=== PATIENT | male | born 1970 | race Caucasian/White ===

== ENCOUNTER 2018-06-20 09:43 | Inpatient (IN) | payer OTHER ==
[2018-06-20 10:43] VITALS: BMI 24.0
--- NOTE | 2018-06-20 11:19 | HP ---
COWS - Scale Resting Pulse: 0= [place] 80 or Below Sweatin= Chills/Flushing Restless Observation: 3= Extraneous Movement Pupil Size: 1= Pupils >than Normal Bone or Joint Aches: 2= Severe Diffuse Aches Runny Nose/ Eye Tearin= Nasal Congestion GI Upset > 30mins: 2= Nausea/Diarrhea Tremor Observation: 2= Slight Tremor Visible Yawning Observation: 1= 1-2x During Session Anxiety or Irritability: 2=Irritable/Anxious Goose Flesh Skin: 0=Smooth Skin COWS Score: 15 Admission ROS BHS - HPI Chief Complaint: i nee dhelp to stop using heroin Allergies/Adverse Reactions: Allergies Allergy/AdvReac Type Severity Reaction Status Date / Time No Known Allergies Allergy Verified 06/20/18 10:58 History of Present Illness: this 47 years old male with heroin dependence,seeking detox,withdrawal symptom, last detox [place] completed multiple admissions in detox,keep relapsing hepatitis c longest sobriety 5 years weight loss Exam Limitations: No Limitations - Ebola screening Have you traveled outside of the country in the last 21 days: No Have you had contact with anyone from an Ebola affected area: No Have you been sick,other than usual withdrawal symptoms: No Do you have a fever: No - Review of Systems Constitutional: Chills, Malaise, Night Sweats, Changes in sleep, Weakness, Unintentional Wgt. Loss EENT: reports: Tearing, Nose Congestion Respiratory: reports: No Symptoms reported Cardiac: reports: No Symptoms Reported GI: reports: Diarrhea, Nausea, Vomiting, Abdominal cramping : reports: No Symptoms Reported Musculoskeletal: reports: Back Pain, Joint Pain, Muscle Pain, Joint Stiffness Integumentary: reports: Dryness Neuro: reports: Headache, Tremors Endocrine: reports: No Symptoms Reported Hematology: reports: No Symptoms Reported Psychiatric: reports: No Sypmtoms Reported, Judgement Intact, Mood/Affect Appropiate, Orientated x3 Patient History - Patient Medical History Hx Anemia: No Hx Asthma: No Hx Chronic Obstructive Pulmonary Disease (COPD): No Hx Cancer: No Hx Cardiac Disorders: No Hx Congestive Heart Failure: No Hx Hypertension: No Hx Hypercholesterolemia: No Hx Pacemaker: No HX Cerebrovascular Accident: No Hx Seizures: No Hx Diabetes: No Hx Gastrointestinal Disorders: No Hx Liver Disease: No Hx Genitourinary Disorders: No Hx Sexually Transmitted Disorders: Yes (gonorrhea and syphilis) Hx Renal Disease (ESRD): No Hx Thyroid Disease: No Hx Human Immunodeficiency Virus (HIV): No (2017 last negative) Hx Hepatitis C: Yes (not treated) Hx Depression: No Hx Suicide Attempt: No Hx Bipolar Disorder: No Hx Schizophrenia: No Other Medical History: no suicidal,no homicidal - Patient Surgical History Past Surgical History: No Hx Neurologic Surgery: No Hx Cardiac Surgery: No Hx Lung Surgery: No Hx Breast Surgery: No Hx Breast Biopsy: No Hx Abdominal Surgery: No Hx Appendectomy: No Hx Cholecystectomy: No Hx Genitourinary Surgery: No Hx Section: No Hx Orthopedic Surgery: No Anesthesia Reaction: No - PPD History Previous Implant?: Yes Documented Results: Negative w/o proof Implanted On Prior [facility] Admission?: No PPD to be Administered?: Yes - Smoking Cessation Smoking history: Former smoker Have you smoked in the past 12 months: No If you are a former smoker, when did you quit?: 2017 Hx Chewing Tobacco Use: No Initiated information on smoking cessation: No 'Breaking Loose' booklet given: 06/20/18 - Substance & Tx. History Hx Alcohol Use: No Hx Substance Use: Yes Substance Use Type: Heroin Hx Substance Use Treatment: Yes (last 2017 [facility], [place], operated by [facility]) - Substances Abused Heroin Route: Injection Frequency: Daily Amount used: 10 bags Age of first use: 15 Date of Last Use: 06/20/18 Family Disease History - Family Disease History Family Disease History: Other: Father (dsa,), Mother (alcohol,) Admission Physical Exam BHS - Vital Signs Vital Signs: Vital Signs - 24 hr 06/20/18 10:41 Temperature 97.3 F L Pulse Rate 59 L Respiratory 18 Rate Blood Pressure 134/84 - Physical General Appearance: Yes: Moderate Distress, Tremorous, Irritable, Sweating, Anxious HEENTM: Yes: Normal ENT Inspection, VEENA, Pharynx Normal Respiratory: Yes: Within Normal Limits, Lungs Clear, Normal Breath Sounds Neck: Yes: Within Normal Limits, Supple, Trachea in good position Breast: Yes: Within Normal Limits Cardiology: Yes: Within Normal Limits, Regular Rhythm, Regular Rate, S1, S2 Abdominal: Yes: Within Normal Limits, Normal Bowel Sounds, Non Tender, Flat, Soft Genitourinary: Yes: Within Normal Limits Back: Yes: Muscle Spasm Musculoskeletal: Yes: Back pain, Joint Stiffness, Muscle Pain Extremities: Yes: Within Normal Limits, Tremors Neurological: Yes: Within Normal Limits, acid painter II-XII NML intact, Fully Oriented, Alert, Motor Strength 5/5 Integumentary: Yes: Dry, Track Philippe Lymphatic: Yes: Within Normal Limits - Diagnostic (1) Opioid dependence with withdrawal Current Visit: Yes Status: Acute (2) Hepatitis C Current Visit: Yes Status: Chronic (3) Weight loss Current Visit: Yes Status: Acute (4) IV drug user Current Visit: Yes Status: Acute Cleared for Admission [facility] - Detox or Rehab [facility] Level of Care: Medically Managed Detox Regimen/Protocol: Methadone [facility] Breath Alcohol Content Breath Alcohol Content: 0 Urine Drug Screen - Results Drug Screen Negative: No Urine Drug Screen Results: OPI-Opiates, FEN-Fentanyl
[2018-06-20] MEDS ORDERED: IBUPROFEN 400 MG TABLET (FP) PO PRN (11:36)
[2018-06-20] MEDS ORDERED: MAGNESIUM HYDROX 2400MG/30ML ORAL SUSPENSION 30 ML CUP PO PRN (11:36)
[2018-06-20] MEDS ORDERED: ACETAMINOPHEN 325 MG TABLET (FP) PO PRN (11:36)
[2018-06-20] MEDS ORDERED: LOPERAMIDE HCL 2 MG CAPSULE PO PRN (11:36)
[2018-06-20] MEDS ORDERED: MAG HYDROX/AL HYDROX/SIMETH 30 ML UNIT-DOSE CUP PO PRN (11:36)
[2018-06-20] MEDS ORDERED: MAGNESIUM CITRATE 300 ML BOTTLE PO PRN (11:36)
[2018-06-20] MEDS ORDERED: P-EPHED 60MG/TRIPROLIDI 2.5MG TABLET PO PRN (11:36)
[2018-06-20] MEDS ORDERED: MENTHOL/PHENOL 1 EACH UD MM PRN (11:36)
[2018-06-20] MEDS ORDERED: guaiFENesin/D-METHORPHAN HB 10 ML UNIT-DOSE CUPS PO PRN (11:36)
[2018-06-20] MEDS ORDERED: CYCLOBENZAPRINE HCL 10 MG TABLET (FP) PO PRN (11:38)
[2018-06-20] MEDS ORDERED: METHADONE HCL 10 MG TABLET (FOR DETOX USE ONLY) PO ONE ×2 (12:00→23:00)
[2018-06-20] MEDS: diazePAM 5 MG TABLET PO PRN (13:29)
[2018-06-20] MEDS ORDERED: MELATONIN 5 MG TABLETS PO PRN (22:00)
[2018-06-20] MEDS: THIAMINE HCL 100 MG TABLET (FP) PO SCH (22:14)
[2018-06-20] MEDS: cloNIDine HCL 0.1 MG TABLET PO SCH (22:14)
[2018-06-21] MEDS: diazePAM 5 MG TABLET PO PRN ×2 (05:39→10:21)
[2018-06-21] MEDS ORDERED: METHADONE HCL 10 MG TABLET (FOR DETOX USE ONLY) PO ONE (10:00)
[2018-06-21] MEDS: PRENATAL VITAMINS W/ FOLIC ACID TABLET (FP) PO SCH (10:21)
[2018-06-21] MEDS: cloNIDine HCL 0.1 MG TABLET PO SCH ×2 (10:21→22:35)
[2018-06-21 10:25] LABS: HEMOGLOBIN 14.4 GM/dL (11.7-16.9); MCHC 33.5 g/dl (32.0-35.9); MEAN CELL VOLUME 92.7 fl (80-96); PLATELET COUNT 211 K/MM3 (134-434); RBC 4.65 M/mm3 (4.00-5.60); RDW 12.2 % (11.9-15.9); WHITE BLOOD COUNT 4.5 K/mm3 (4.0-10.0)
[2018-06-21 11:39] LABS: ALBUMIN 3.9 g/dl (3.4-5.0); ALK PHOS 97 U/L (45-117); ANION GAP 10 MMOL/L (8-16); BILIRUBIN,TOTAL 0.5 mg/dL (0.2-1); BLOOD UREA NITROGEN 14 mg/dL (7-18); CALCIUM 8.6 mg/dL (8.5-10.1); CHLORIDE 105 mmol/L (98-107); CO2 24 mmol/L (21-32); CREATININE 0.9 mg/dL (0.55-1.3); GLUCOSE,RANDOM 127 mg/dL (74-106); POTASSIUM 4.2 mmol/L (3.5-5.1); SGOT/AST 25 U/L (15-37); SGPT/ALT 24 U/L (13-61); SODIUM 139 mmol/L (136-145); TOT PROT 6.9 g/dl (6.4-8.2)
--- NOTE | 2018-06-21 13:01 | EKG ---
Test Reason : Blood Pressure : / mmHG Vent. Rate : 063 BPM Atrial Rate : 063 BPM P-R Int : 128 ms QRS Dur : 094 ms QT Int : 420 ms P-R-T Axes : 052 056 034 degrees QTc Int : 429 ms NORMAL SINUS RHYTHM NORMAL ECG Confirmed by MD ALFONZO, MAURY ([id number]) on 06/21/2018 1:00:45 PM Referred By: Confirmed By:MAURY MEJÍA MD
--- NOTE | 2018-06-21 14:27 | PN ---
BHS COWS - Scale Resting Pulse: 0= [place] 80 or Below Sweatin= Chills/Flushing Restless Observation: 3= Extraneous Movement Pupil Size: 1= Pupils >than Normal Bone or Joint Aches: 2= Severe Diffuse Aches Runny Nose/ Eye Tearin= Runny Nose/Eyes GI Upset > 30mins: 3= Vomiting/Diarrhea Tremor Observation of Outstretched Hands: 2= Slight Tremor Visible Yawning Observation: 1= 1-2x During Session Anxiety or Irritability: 2=Irritable/Anxious Goose Flesh Skin: 0=Smooth Skin COWS Score: 17 BHS Progress Note (SOAP) Subjective: N/V/D, sweating, interrupted sleep Objective: 06/21/18 14:23 Last Vital Signs Temp Pulse Resp BP Pulse Ox 98.2 F 80 16 113/73 06/21/18 13:19 06/21/18 13:19 06/21/18 13:19 06/21/18 13:19 Laboratory Tests 06/20/18 06/21/18 06/21/18 11:20 05:30 05:30 WBC 4.5 RBC 4.65 Hgb 14.4 Hct 43.0 MCV 92.7 MCH 31.0 MCHC 33.5 RDW 12.2 Plt Count 211 MPV 9.0 Sodium 139 Potassium 4.2 Chloride 105 Carbon Dioxide 24 Anion Gap 10 BUN 14 Creatinine 0.9 Creat Clearance w eGFR > 60 Random Glucose 127 H Calcium 8.6 Total Bilirubin 0.5 AST 25 ALT 24 Alkaline Phosphatase 97 Total Protein 6.9 Albumin 3.9 RPR Titer HIV 1&2 Antibody Screen Negative HIV P24 Antigen Negative 06/21/18 05:30 WBC RBC Hgb Hct MCV MCH MCHC RDW Plt Count MPV Sodium Potassium Chloride Carbon Dioxide Anion Gap BUN Creatinine Creat Clearance w eGFR Random Glucose Calcium Total Bilirubin AST ALT Alkaline Phosphatase Total Protein Albumin RPR Titer Nonreactive HIV 1&2 Antibody Screen HIV P24 Antigen Labs reviewed: serum glucose 127 Assessment: 06/21/18 14:24 Withdrawal symptoms Noted with hyperglycemia Plan: Continue detox Encouraged PO water intake Hyperglycemia: repeat fasting glucose
[2018-06-21] MEDS: THIAMINE HCL 100 MG TABLET (FP) PO SCH (22:35)
[2018-06-22] MEDS: diazePAM 5 MG TABLET PO PRN ×4 (05:51→22:29)
[2018-06-22] MEDS ORDERED: METHADONE HCL 5 MG TABLET (FOR DETOX USE ONLY) PO ONE (10:00)
[2018-06-22] MEDS: PRENATAL VITAMINS W/ FOLIC ACID TABLET (FP) PO SCH (10:22)
[2018-06-22] MEDS: cloNIDine HCL 0.1 MG TABLET PO SCH (10:22)
[2018-06-22] MEDS ORDERED: hydrOXYzine PAMOATE 50 MG CAPSULE (FP) PO PRN (11:26)
--- NOTE | 2018-06-22 13:15 | PN ---
BHS COWS - Scale Resting Pulse: 1= [place] 81-100 Sweatin= Chills/Flushing Restless Observation: 3= Extraneous Movement Pupil Size: 0= Normal to Room Light Bone or Joint Aches: 2= Severe Diffuse Aches Runny Nose/ Eye Tearin= Runny Nose/Eyes GI Upset > 30mins: 2= Nausea/Diarrhea Tremor Observation of Outstretched Hands: 2= Slight Tremor Visible Yawning Observation: 1= 1-2x During Session Anxiety or Irritability: 2=Irritable/Anxious Goose Flesh Skin: 0=Smooth Skin COWS Score: 16 BHS Progress Note (SOAP) Subjective: Sweating, chills, tremor, runny nose, interrupted sleep Objective: 06/22/18 13:10 Last Vital Signs Temp Pulse Resp BP Pulse Ox 97.0 F L 84 18 123/76 06/22/18 09:32 06/22/18 09:32 06/22/18 09:32 06/22/18 09:32 Laboratory Tests 06/20/18 06/21/18 06/21/18 11:20 05:30 05:30 WBC 4.5 RBC 4.65 Hgb 14.4 Hct 43.0 MCV 92.7 MCH 31.0 MCHC 33.5 RDW 12.2 Plt Count 211 MPV 9.0 Sodium 139 Potassium 4.2 Chloride 105 Carbon Dioxide 24 Anion Gap 10 BUN 14 Creatinine 0.9 Creat Clearance w eGFR > 60 Random Glucose 127 H Calcium 8.6 Total Bilirubin 0.5 AST 25 ALT 24 Alkaline Phosphatase 97 Total Protein 6.9 Albumin 3.9 RPR Titer HIV 1&2 Antibody Screen Negative HIV P24 Antigen Negative 06/21/18 05:30 WBC RBC Hgb Hct MCV MCH MCHC RDW Plt Count MPV Sodium Potassium Chloride Carbon Dioxide Anion Gap BUN Creatinine Creat Clearance w eGFR Random Glucose Calcium Total Bilirubin AST ALT Alkaline Phosphatase Total Protein Albumin RPR Titer Nonreactive HIV 1&2 Antibody Screen HIV P24 Antigen Labs reviewed: glucose 127 Assessment: 06/22/18 13:11 Withdrawal symptoms Noted with hyperglycemia Plan: Continue detox Encouraged PO water intake Change clonidine 0.1mg PO bid to q8hr prn, start vistaril 50mg PO q6hr prn due to c/o increased withdrawal symptoms Hyperglycemia: ordered for repeated fasting glucose but patient refused
[2018-06-22] MEDS ORDERED: cloNIDine HCL 0.1 MG TABLET PO PRN (16:00)
[2018-06-22] MEDS: THIAMINE HCL 100 MG TABLET (FP) PO SCH (22:29)
[2018-06-23] MEDS: diazePAM 5 MG TABLET PO PRN (05:51)
[2018-06-23] MEDS ORDERED: ONDANSETRON *ODT* 4 MG TABLET SL PRN (09:58)
[2018-06-23] MEDS ORDERED: METHADONE HCL 5 MG TABLET (FOR DETOX USE ONLY) PO ONE (10:00)
[2018-06-23] MEDS: PRENATAL VITAMINS W/ FOLIC ACID TABLET (FP) PO SCH (10:29)
--- NOTE | 2018-06-23 14:41 | PN ---
BHS Progress Note (SOAP) Subjective: Sweating, nausea, diarrhea Objective: 06/23/18 14:37 Last Vital Signs Temp Pulse Resp BP Pulse Ox 97.4 F L 80 18 126/76 06/23/18 14:03 06/23/18 14:03 06/23/18 14:03 06/23/18 14:03 Laboratory Tests 06/20/18 06/21/18 06/21/18 11:20 05:30 05:30 WBC 4.5 RBC 4.65 Hgb 14.4 Hct 43.0 MCV 92.7 MCH 31.0 MCHC 33.5 RDW 12.2 Plt Count 211 MPV 9.0 Sodium 139 Potassium 4.2 Chloride 105 Carbon Dioxide 24 Anion Gap 10 BUN 14 Creatinine 0.9 Creat Clearance w eGFR > 60 Random Glucose 127 H Calcium 8.6 Total Bilirubin 0.5 AST 25 ALT 24 Alkaline Phosphatase 97 Total Protein 6.9 Albumin 3.9 RPR Titer HIV 1&2 Antibody Screen Negative HIV P24 Antigen Negative 06/21/18 05:30 WBC RBC Hgb Hct MCV MCH MCHC RDW Plt Count MPV Sodium Potassium Chloride Carbon Dioxide Anion Gap BUN Creatinine Creat Clearance w eGFR Random Glucose Calcium Total Bilirubin AST ALT Alkaline Phosphatase Total Protein Albumin RPR Titer Nonreactive HIV 1&2 Antibody Screen HIV P24 Antigen Labs reviewed Assessment: 06/23/18 14:38 Withdrawal symptoms Plan: Continue detox Encouraged PO water intake
[2018-06-23 19:15] LABS: URINE APPEARANCE CLEAR; URINE BILIRUBIN NEGATIVE (<2.0 mg/dL); URINE COLOR LTYELLOW; URINE GLUCOSE (UA) NEGATIVE (NEGATIVE); URINE KETONE NEGATIVE (NEGATIVE); URINE LEUK ESTERASE NEGATIVE (NEGATIVE); URINE NITRITE NEGATIVE (NEGATIVE); URINE PROTEIN NEGATIVE (NEGATIVE); URINE UROBILINOGEN NEGATIVE mg/dL (0.2-1.0)
[2018-06-23] MEDS: THIAMINE HCL 100 MG TABLET (FP) PO SCH (22:27)
[2018-06-24 09:46] VITALS: BP 127/76; PULSE 80; TEMP 97.5
[2018-06-24] MEDS ORDERED: METHADONE HCL 10 MG TABLET (FOR DETOX USE ONLY) PO ONE (10:00)
[2018-06-24] MEDS: PRENATAL VITAMINS W/ FOLIC ACID TABLET (FP) PO SCH (10:12)
--- NOTE | 2018-06-24 11:25 | DS ---
[facility] Detox Discharge Summary Admission Date: 06/20/18 Discharge Date: 06/24/18 - History Present History: Opioid Dependence Additional Comments: Patient decided to leave AMA after receiving his morning medications despite encouragement to complete detox. 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 Patient instructed to call 911 if feeling sick or any withdrawal symptoms and to see his PCP within 3 days. Pertinent Past History: Hepatitis C Opioid dependence - Physical Exam Results Vital Signs: Vital Signs Temperature 97.5 F L 06/24/18 09:46 Pulse Rate 80 06/24/18 09:46 Respiratory Rate 18 06/24/18 09:46 Blood Pressure 127/76 06/24/18 09:46 O2 Sat by Pulse Oximetry (%) Pertinent Admission Physical Exam Findings: Withdrawal symptoms Laboratory Tests 06/20/18 06/21/18 06/21/18 11:20 05:30 05:30 WBC 4.5 RBC 4.65 Hgb 14.4 Hct 43.0 MCV 92.7 MCH 31.0 MCHC 33.5 RDW 12.2 Plt Count 211 MPV 9.0 Sodium 139 Potassium 4.2 Chloride 105 Carbon Dioxide 24 Anion Gap 10 BUN 14 Creatinine 0.9 Creat Clearance w eGFR > 60 Random Glucose 127 H Calcium 8.6 Total Bilirubin 0.5 AST 25 ALT 24 Alkaline Phosphatase 97 Total Protein 6.9 Albumin 3.9 Urine Color Urine Appearance Urine pH Ur Specific [place] Urine Protein Urine Glucose (UA) Urine Ketones Urine Blood Urine Nitrite Urine Bilirubin Urine Urobilinogen Ur Leukocyte Esterase RPR Titer HIV 1&2 Antibody Screen Negative HIV P24 Antigen Negative 06/21/18 06/23/18 05:30 18:30 WBC RBC Hgb Hct MCV MCH MCHC RDW Plt Count MPV Sodium Potassium Chloride Carbon Dioxide Anion Gap BUN Creatinine Creat Clearance w eGFR Random Glucose Calcium Total Bilirubin AST ALT Alkaline Phosphatase Total Protein Albumin Urine Color Ltyellow Urine Appearance Clear Urine pH 5.0 Ur Specific [place] 1.014 Urine Protein Negative Urine Glucose (UA) Negative Urine Ketones Negative Urine Blood Negative Urine Nitrite Negative Urine Bilirubin Negative Urine Urobilinogen Negative Ur Leukocyte Esterase Negative RPR Titer Nonreactive HIV 1&2 Antibody Screen HIV P24 Antigen Labs reviewed - Medication Discharge Medications: Ambulatory Orders NK [No Known Home Medication] 06/20/18 - Diagnosis (1) Hyperglycemia Current Visit: Yes Status: Acute (2) Hepatitis C Current Visit: Yes Status: Chronic (3) Opioid dependence with withdrawal Current Visit: Yes Status: Acute - AMA Did Patient Leave Against Medical Advice: Yes (Patient instructed to call 911 if feeling sick or any withdrawal symptoms)
[2018-06-25] MEDS ORDERED: METHADONE HCL 5 MG TABLET (FOR DETOX USE ONLY) PO ONE (06:00)
== END 2018-06-24 11:56 | disposition left against medical advice (07) | DRG 770 ==
LOC: YASAS 09:43 → Y3N 11:41
PROC: HZ2ZZZZ Detoxification Services for Substance Abuse Treatment (ICD-10-PCS; principal; 2018-06-20)
DX: F11.23 Opioid dependence with withdrawal (principal); B18.2 Chronic viral hepatitis C; R73.9 Hyperglycemia, unspecified; R63.4 Abnormal weight loss; Z68.24 Body mass index [BMI] 24.0-24.9, adult; Z86.19 Personal history of other infectious and parasitic diseases; Z87.891 Personal history of nicotine dependence
CPT/HCPCS: 36415; 80053; 81003; 85027; 86593; 87389; 93005; 93010; J0735